=== PATIENT | female | born 1985 | race Caucasian/White ===

== ENCOUNTER 2019-12-07 14:18 | Outpatient (REF) | payer BC, SELFPAY ==
[2019-12-11 12:40] LABS: SARS-CoV-2 RNA Undetected (Undetected); SARS-CoV-2 Specimen Source Nasopharynx
== END 2019-12-07 14:38 ==
LOC: NCHCN 14:18
PROVIDERS: PCP Registered Nurse; Visit Provider Registered Nurse
DX: R19.7 Diarrhea, unspecified (principal); R11.2 Nausea with vomiting, unspecified
CPT/HCPCS: U0003

== ENCOUNTER 2020-08-09 18:07 | Outpatient (REF) | payer BC, SELFPAY ==
[2020-08-09 13:10] LABS: Hemoglobin A1C 5.2 % (<5.7)
[2020-08-09 13:12] LABS: ALT 40 U/L (14-59); AST 24 U/L (15-37); Alkaline Phosphatase 81 U/L (46-116); Anion Gap 6.5 mmol/L (3-11); BUN 10 mg/dL (7-18); Bilirubin, Total 0.3 mg/dL (0.2-1.0); CO2 28.5 mmol/L (21.0-32.0); CREATININE 0.8 mg/dL (0.55-1.02); Calcium 9.4 mg/dL (8.5-10.1); Calculated LDL 114 mg/dL (<100); Chloride 107 mmol/L (98-107); Cholesterol 183 mg/dL (<200); Glucose 98 mg/dL (74-106); HDL Cholesterol 43 mg/dL (40-60); Potassium 4.7 mmol/L (3.5-5.1); Sodium 142 mmol/L (136-145); Total Protein 7.7 g/dL (6.4-8.2); Triglyceride 132 mg/dL (<150)
== END 2020-08-09 18:08 | disposition home or self-care (01) ==
LOC: NCHCN 18:07
PROVIDERS: PCP Registered Nurse; Visit Provider Registered Nurse
DX: Z00.00 Encounter for general adult medical examination without abnormal findings (principal); R10.10 Upper abdominal pain, unspecified; Z83.3 Family history of diabetes mellitus; Z13.1 Encounter for screening for diabetes mellitus; Z68.41 Body mass index [BMI] 40.0-44.9, adult; Z13.220 Encounter for screening for lipoid disorders
CPT/HCPCS: 80053; 80061; 83036

== ENCOUNTER 2022-09-04 12:27 | Outpatient (REF) | payer BC, SELFPAY ==
[2022-09-04 15:37] LABS: Abs Immature Grans 0.04 10^3/uL (0.0-0.06); Absolute Basophil Count 0.07 10^3/uL (0.0-0.2); Absolute Eosinophil Count 0.56 10^3/uL (0.0-0.7); Absolute Lymphocyte Count 3.67 10^3/uL (1.2-3.4); Absolute Monocyte Count 0.75 10^3/uL (0.1-0.8); Absolute Neutrophil Count 4.26 10^3/uL (1.2-6.7); Basophils % 0.7; HCT 41.5 % (36.0-46.0); HGB 13.8 g/dL (11.2-15.7); Immature Grans % 0.4; Lymphocytes % 39.3; MCH 30.9 pg (27.0-33.0); MCHC 33.3 % (32.0-36.0); MCV 93 fL (80-95); MPV 9.1 fL (8.0-11.0); Neutrophils % 45.6; Platelet Count 460 10^3/uL (130-400); RBC 4.47 10^6/uL (3.93-5.22); RDW 13.2 % (11.7-14.6); RDW-SD 45.4 fL; WBC 9.35 10^3/uL (4.4-10.8)
[2022-09-04 16:12] LABS: ALT 25 U/L (14-59); AST 22 U/L (15-37); Albumin 3.9 g/dL (3.4-5.0); Alkaline Phosphatase 98 U/L (46-116); Anion Gap 9.7 mmol/L (3-11); BUN 12 mg/dL (7-18); Bilirubin, Total 0.3 mg/dL (0.2-1.0); CO2 24.3 mmol/L (21.0-32.0); CREATININE 0.7 mg/dL (0.55-1.02); Calcium 9.3 mg/dL (8.5-10.1); Calculated LDL 103 mg/dL (<100); Chloride 106 mmol/L (98-107); Cholesterol 166 mg/dL (<200); Estimated GFR 113.46 (mL/min/1.73m2); Glucose 95 mg/dL (74-106); HDL Cholesterol 51 mg/dL (40-60); Potassium 4.3 mmol/L (3.5-5.1); Sodium 140 mmol/L (136-145); Total Protein 8.2 g/dL (6.4-8.2); Triglyceride 61 mg/dL (<150)
== END 2022-09-04 12:28 | disposition home or self-care (01) ==
LOC: NCHCN 12:27
PROVIDERS: PCP Registered Nurse; Visit Provider Registered Nurse
DX: Z00.00 Encounter for general adult medical examination without abnormal findings (principal); D72.829 Elevated white blood cell count, unspecified; E66.8 Other obesity; Z68.41 Body mass index [BMI] 40.0-44.9, adult; Z13.220 Encounter for screening for lipoid disorders
CPT/HCPCS: 80053; 80061; 85025

== ENCOUNTER 2023-09-09 12:18 | Outpatient (REF) | payer BC, SELFPAY ==
[2023-09-09 15:56] LABS: HCT 39.8 % (36.0-46.0); HGB 13.3 g/dL (11.2-15.7); MCH 31.1 pg (27.0-33.0); MCHC 33.4 % (32.0-36.0); MCV 93 fL (80-95); MPV 9.3 fL (8.0-11.0); Platelet Count 436 10^3/uL (130-400); RBC 4.27 10^6/uL (3.93-5.22); RDW 12.9 % (11.7-14.6); RDW-SD 44.3 fL; WBC 11.31 10^3/uL (4.4-10.8)
[2023-09-09 16:45] LABS: ALT 38 U/L (14-59); AST 23 U/L (15-37); Albumin 3.9 g/dL (3.4-5.0); Alkaline Phosphatase 85 U/L (46-116); BUN 11 mg/dL (7-18); Bilirubin, Total 0.3 mg/dL (0.2-1.0); CREATININE 0.7 mg/dL (0.55-1.02); Calcium 9.3 mg/dL (8.5-10.1); Calculated LDL 104 mg/dL (<100); Chloride 106 mmol/L (98-107); Cholesterol 182 mg/dL (<200); Estimated GFR 112.75 (mL/min/1.73m2); Glucose 106 mg/dL (74-106); HDL Cholesterol 47 mg/dL (40-60); Potassium 3.9 mmol/L (3.5-5.1); Sodium 136 mmol/L (136-145); TSH (W/Ref FT4) 1.46 uIU/mL (0.36-3.74); Triglyceride 158 mg/dL (<150)
== END 2023-09-09 12:19 | disposition home or self-care (01) ==
LOC: NCHCN 12:18
PROVIDERS: PCP Registered Nurse; Visit Provider Family Medicine
DX: R53.83 Other fatigue (principal); Z13.220 Encounter for screening for lipoid disorders; R79.9 Abnormal finding of blood chemistry, unspecified
CPT/HCPCS: 80053; 80061; 85027; 84443